=== PATIENT | female | born 1935 | race Caucasian/White ===

== ENCOUNTER → 2017-06-26 | Outpatient (CLI) | payer MEDICARE, MEDICAID ==
[~2017-06-26] MED LIST: ASPI-1471 PO; ASPI-719 PO; CARV12.578 PO; CARV25TA78 PO; DOCU-202 PO; FAMO-67 PO; HUMALOG SC; HYDR-2970 PO; INSU100C14 SQ; LANI SC; LISI-362 PO; METF-409 PO; METF-410 PO; METO25TA89 PO; OMEG-11 PO; QUI20 PO; SIMV-44 PO; SIMV10TA98 PO
== END ==
LOC: AMB 01:53
PROVIDERS: ATTEND Nurse Practitioner
DX: E10.65 Type 1 diabetes mellitus with hyperglycemia (principal); I10 Essential (primary) hypertension; R07.9 Chest pain, unspecified
CPT/HCPCS: A0425; A0427

== ENCOUNTER → 2017-06-28 | Outpatient (REF) | payer MEDICARE, MEDICAID | LOC: ZZLCC 08:05 | PROVIDERS: ATTEND Family Medicine | DX: E11.9 Type 2 diabetes mellitus without complications (principal); Z79.4 Long term (current) use of insulin; E78.5 Hyperlipidemia, unspecified; K21.9 Gastro-esophageal reflux disease without esophagitis; K59.00 Constipation, unspecified | CPT/HCPCS: 82009; 82040; 82247; 82310; 82374; 82435; 82565; 82947; 83036; 84075; 84132; 84155; 84295; 84450; 84460; 84520; 85027 ==

== ENCOUNTER → 2017-09-22 | Outpatient (REF) | payer MEDICARE, MEDICAID | LOC: ZZLCC 13:58 | PROVIDERS: ATTEND Family Medicine | DX: E11.9 Type 2 diabetes mellitus without complications (principal); Z79.899 Other long term (current) drug therapy | CPT/HCPCS: 82310; 82374; 82435; 82565; 82947; 84132; 84295; 84520 ==

== ENCOUNTER → 2017-11-21 | Outpatient (REF) | payer MEDICARE, MEDICAID ==
[~2017-11-21] MED LIST changes: -METF-410 PO; +METF-411 PO
== END ==
LOC: ZZLCC 07:42
PROVIDERS: ATTEND Family Medicine
DX: E11.69 Type 2 diabetes mellitus with other specified complication (principal)
CPT/HCPCS: 82043

== ENCOUNTER → 2018-03-21 | Outpatient (REF) | payer MEDICARE, MEDICAID | LOC: ZZLCC 11:26 | PROVIDERS: ATTEND Family Medicine | DX: E11.69 Type 2 diabetes mellitus with other specified complication (principal); Z79.899 Other long term (current) drug therapy | CPT/HCPCS: 82310; 82374; 82435; 82565; 82947; 83036; 84132; 84295; 84520 ==

== ENCOUNTER → 2018-03-29 | Outpatient (REF) | payer MEDICARE, MEDICAID ==
[~2018-03-29] MED LIST changes: +CANA300T PO; +INSU100I8 SQ; -METF-411 PO; +METF-450 PO
== END ==
LOC: ZZLCC 15:38
PROVIDERS: ATTEND Family Medicine
DX: E11.69 Type 2 diabetes mellitus with other specified complication (principal)
CPT/HCPCS: 83036

== ENCOUNTER → 2018-03-30 | Outpatient (CLI) | payer MEDICARE, MEDICAID ==
[~2018-03-30] MED LIST changes: +INSU100I30 SUBQ; +INSU100V24 SUBQ
== END ==
LOC: AMB 07:45
PROVIDERS: ATTEND Nurse Practitioner
DX: R06.00 Dyspnea, unspecified (principal); R73.9 Hyperglycemia, unspecified; R11.10 Vomiting, unspecified; R41.0 Disorientation, unspecified; R23.0 Cyanosis; R47.81 Slurred speech
CPT/HCPCS: A0425; A0427

== ENCOUNTER → 2018-04-06 | Outpatient (REF) | payer MEDICARE, MEDICAID | LOC: ZZSENDIN 14:18 | PROVIDERS: ATTEND Physician Assistant | DX: R60.0 Localized edema (principal) | CPT/HCPCS: 83880 ==

== ENCOUNTER → 2018-04-13 | Outpatient (CLI) | payer MEDICAID, MEDICARE, OTHER | LOC: US 04:05 | PROVIDERS: ATTEND Family Medicine | DX: I50.23 Acute on chronic systolic (congestive) heart failure (principal) | CPT/HCPCS: 93306 ==

== ENCOUNTER 2018-06-06 17:44 | Observation (INO) | payer MEDICARE, MEDICAID ==
[~2018-06-06] VITALS: Ht 160 cm; Wt 61.7 kg
[~2018-06-06 17:44] MED LIST changes: -ACET500T68 PO; -ALBU2.5V36 INH; -ANTACID PO; -FURO-47 PO; -INSU100I10; -INSU100I30 SQ; -LOPE-147 PO; -NITR0.4T3 SL; -SIMV-49 PO; -[UNRECOGNIZED DRUG - CODE] PO
--- NOTE | 2018-06-06 17:49 | ER Report ---
History and Physical Time Seen By MD: 17:49 Hx. of Stated Complaint: HYPOGLYCEMIA, CONTINUED SLURRED SPEECH. HPI/ROS CHIEF COMPLAINT: Hypoglycemia HISTORY OF PRESENT ILLNESS: This is an 82-year-old female who presents to the emergency department via EMS for hypoglycemia. Patient is a resident of the [facility], she was noted to be unresponsive by the staff, they did check her blood sugar there noted it was 28. They did try to give her oral glucose. EMS was contacted, they did upon arrival give her 2 intensity 50, the patient did begin to rales, she is now alert but still confused with some slurred speech. Patient denies fevers or chills. No chest pain or shortness breath. No headaches, no blurred vision no numbness or tingling. REVIEW OF SYSTEMS: Constitutional: No fever, no chills. Eyes: No discharge. ENT: No sore throat. Cardiovascular: No chest pain, no palpitations. Respiratory: No cough, no shortness of breath. Gastrointestinal: No abdominal pain, no vomiting. Genitourinary: No hematuria. Musculoskeletal: No back pain. Skin: No rashes. Neurological: As above. Allergies: Coded Allergies: Sulfa (Sulfonamide Antibiotics) (Verified Allergy, Intermediate, hives, 06/06/18) Penicillins (Verified Allergy, Mild, RASH, 06/06/18) Home Meds Active Scripts Insulin Lispro 100 Un/Ml Vial (HUMALOG 100 U/ML VIAL) 100 Unit/1 Ml Vial, 2-10 UNIT SUBQ SS PRN for SLIDING SCALE INSULIN, #10 ML 2 units for gluc 150-200 4 units for gluc 201-250 6 units for gluc 251-300 8 units for gluc 301-350 10 units for gluc >350 Prov:CHASE WHELAN DO 04/02/18 Reported Medications Simvastatin (SIMVASTATIN) 20 Mg Tablet, 10 MG PO HS, TAB 06/06/18 Nitroglycerin (NITROGLYCERIN) 0.4 Mg Tab.subl, 0.4 MG SL Q5MIN 06/06/18 Insulin Glargine 100 Un/Ml Pen (LANTUS SOLOSTAR PEN) 100 Unit/1 Ml Insuln.pen, 22 UNIT SQ DAILY, PEN 06/06/18 Furosemide (FUROSEMIDE) 40 Mg Tablet, 1 TAB PO DAILY, TAB 06/06/18 Loperamide Hcl (ANTI-DIARRHEA) 2 Mg Tablet, 2 MG PO 06/06/18 [antacid suspension] No Conflict Check, 30 ML PO 06/06/18 Albuterol Sulfate 0.083% (ALBUTEROL SULFATE 0.083%) 2.5 Mg/3 Ml Vial.neb, 2.5 MG INH BID, INH 06/06/18 Acetaminophen (TYLENOL EXTRA STRENGTH) 500 Mg Tablet, 500 MG PO Q4H for PAIN, TAB 06/06/18 Carvedilol (CARVEDILOL) 25 Mg Tablet, 25 MG PO BID, #10 TAB 01/01/16 Famotidine (FAMOTIDINE) 20 Mg Tablet, 20 MG PO QDAY, TAB 01/01/16 Docusate Sodium (DOCUSATE SODIUM) 100 Mg Capsule, 100 MG PO BID, CAPSULE 02/08/15 Lisinopril (LISINOPRIL) 10 Mg Tablet, 20 MG PO QDAY 02/08/15 Aspirin (ASPIR 81) 81 Mg Tablet.dr, 81 MG PO QDAY, TAB 02/08/15 Discontinued Reported Medications Insulin Glargine,Hum.rec.anlog (Basaglar Kwikpen U-100) 100 Unit/Ml (3 Ml) Insuln.pen, 18 DAILY 06/06/18 Simvastatin (SIMVASTATIN) 10 Mg Tablet, 10 MG PO HS, TAB 02/08/15 Discontinued Scripts Insulin Glargine 100 Un/Ml Pen (LANTUS SOLOSTAR PEN) 100 Unit/1 Ml Insuln.pen, 20 UNIT SUBQ DAILY, #10 ML Prov:CHASE WHELAN DO 04/02/18 Past Medical/Surgical History The patient has a past medical and surgical history of hypertension, hypercholesterolemia, constipation, GERD, wears glasses, type II diabetes, uses insulin. Reviewed Nurses Notes: Yes Hx Smoking: No Smoking Status: Never Smoker Hx Substance Use Disorder: No Constitutional Vital Sign - Last 24 Hours 06/06/18 06/06/18 06/06/18 06/06/18 17:44 17:45 17:49 18:00 Pulse 93 45 45 47 Resp 22 B/P (MAP) 165/86 165/86 (112) 184/85 (118) ???/??? (1665) Pulse Ox 95 O2 Delivery Room Air 06/06/18 06/06/18 06/06/18 06/06/18 18:15 18:30 18:35 18:45 Pulse 45 47 50 Resp 13 15 9 B/P (MAP) 193/87 (122) 177/102 (127) 167/78 (107) Pulse Ox 98 98 96 06/06/18 06/06/18 06/06/18 06/06/18 18:50 19:00 19:05 19:15 Pulse 47 44 Resp 6 6 B/P (MAP) 150/62 (91) 166/75 (105) 06/06/18 06/06/18 06/06/18 06/06/18 19:20 19:30 19:35 19:40 Pulse 43 64 ??? Resp 11 26 B/P (MAP) 175/79 (111) 06/06/18 19:45 B/P (MAP) 127/95 (106) Physical Exam General Appearance: The patient is alert, has no immediate need for airway protection and no signs of toxicity. Eyes: Pupils equal and round no pallor or injection. Right pupil 3 mm, left pupil 2 mm, both equal and reactive to light. EOMs intact, no nystagmus. ENT, Mouth: Mucous membranes are moist. Respiratory: There are no retractions, lungs are clear to auscultation. Cardiovascular: Regular rate and rhythm, no murmurs, clicks or rubs. Gastrointestinal: Abdomen is soft and non tender, no masses, bowel sounds normal. Neurological: Alert and oriented 3. Moving all extremities. Following all commands. No focal neuro deficits. CS 14. No pronator drift, is able to extend both arms for 10 seconds each, is able to keep both legs off the gurney for 5 seconds each. No deviation of the tongue. Skin: Warm and dry, no rashes. Musculoskeletal: Neck is supple non tender. Extremities are nontender, nonswollen and have full range of motion. DIFFERENTIAL DIAGNOSIS: After history and physical exam differential diagnosis was considered for altered mental status including but not limited to hypoglycemia, infectious process, electrolyte abnormality, head injury and intoxicants. Medical Decision Making Data Points Result Diagram: 06/06/18182506/06/181825 Laboratory Hematology Test 06/06/18 18:26 06/06/18 18:31 Red Blood Count 4.24 M/uL (4.17-5.56) Mean Corpuscular Volume 93.7 fL (80.0-96.0) Mean Corpuscular Hemoglobin 31.5 pg (26.0-33.0) Mean Corpuscular Hemoglobin Concent 33.6 g/dL (32.0-36.0) Red Cell Distribution Width 14.4 % (11.5-14.5) Mean Platelet Volume 9.0 fL (7.2-11.1) Neutrophils (%) (Auto) 59.3 % (39.4-72.5) Lymphocytes (%) (Auto) 27.1 % (17.6-49.6) Monocytes (%) (Auto) 7.3 % (4.1-12.4) Eosinophils (%) (Auto) 4.2 % (0.4-6.7) Basophils (%) (Auto) 2.1 % (0.3-1.4) Nucleated RBC Relative Count (auto) 0.0 /100WBC Neutrophils # (Auto) 3.6 K/uL (2.0-7.4) Lymphocytes # (Auto) 1.6 K/uL (1.3-3.6) Monocytes # (Auto) 0.4 K/uL (0.3-1.0) Eosinophils # (Auto) 0.3 K/uL (0.0-0.5) Basophils # (Auto) 0.1 K/uL (0.0-0.1) Nucleated RBC Absolute Count (auto) 0.00 K/uL Sodium Level 136 mmol/L (137-145) Potassium Level 3.6 mmol/L (3.5-5.0) Chloride Level 95 mmol/L (98-107) Carbon Dioxide Level 34 mmol/L (22-31) Blood Urea Nitrogen 20 mg/dl (7-18) Creatinine 0.90 mg/dl (0.52-1.04) Glomerular Filtration Rate Calc 59.8 Random Glucose 127 mg/dl (75-110) Calcium Level 9.3 mg/dl (8.4-10.2) Magnesium Level 2.2 mg/dl (1.7-2.2) Total Bilirubin 0.3 mg/dl (0.2-1.3) Aspartate Amino Transf (AST/SGOT) 31 U/L (0-35) Alanine Aminotransferase (ALT/SGPT) 32 U/L (0-56) Alkaline Phosphatase 82 U/L (0-126) Troponin I < 0.012 ng/ml Total Protein 7.2 g/dl (6.3-8.2) Albumin 3.8 g/dl (3.5-5.0) Urine Color Straw Urine Clarity Clear Urine pH 7.0 pH (4.8-9.5) Urine Specific [place] 1.005 Urine Protein Negative mg/dL (NEGATIVE) Urine Glucose (UA) 50 mg/dL (NEGATIVE) Urine Ketones Negative mg/dL (NEGATIVE) Urine Blood Negative (NEGATIVE) Urine Nitrite Negative (NEGATIVE) Urine Bilirubin Negative (NEGATIVE) Urine Urobilinogen Negative mg/dL (0.2-1.9) Urine Leukocyte Esterase Trace (NEGATIVE) Urine RBC 1 /HPF (0-2/HPF) Urine WBC 3 /HPF (0-5/HPF) Urine Squamous Epithelial Cells None /LPF (NONE-FEW) Urine Bacteria Negative /HPF (NONE-FEW) Urine Mucus None /HPF (NONE-FEW) Urine Opiates Screen Negative Urine Barbiturates Screen Negative Ur Tricyclic Antidepressants Screen Negative Urine Phencyclidine Screen Negative Urine Amphetamines Screen Negative Urine Benzodiazepines Screen Negative Urine Cocaine Screen Negative Urine Cannabinoids Screen Negative Chemistry Test 06/06/18 18:26 06/06/18 18:31 White Blood Count 6.0 k/uL (4.5-11.0) Red Blood Count 4.24 M/uL (4.17-5.56) Hemoglobin 13.3 g/dL (12.0-16.0) Hematocrit 39.7 % (34.0-47.0) Mean Corpuscular Volume 93.7 fL (80.0-96.0) Mean Corpuscular Hemoglobin 31.5 pg (26.0-33.0) Mean Corpuscular Hemoglobin Concent 33.6 g/dL (32.0-36.0) Red Cell Distribution Width 14.4 % (11.5-14.5) Platelet Count 278 K/uL (150-450) Mean Platelet Volume 9.0 fL (7.2-11.1) Neutrophils (%) (Auto) 59.3 % (39.4-72.5) Lymphocytes (%) (Auto) 27.1 % (17.6-49.6) Monocytes (%) (Auto) 7.3 % (4.1-12.4) Eosinophils (%) (Auto) 4.2 % (0.4-6.7) Basophils (%) (Auto) 2.1 % (0.3-1.4) Nucleated RBC Relative Count (auto) 0.0 /100WBC Neutrophils # (Auto) 3.6 K/uL (2.0-7.4) Lymphocytes # (Auto) 1.6 K/uL (1.3-3.6) Monocytes # (Auto) 0.4 K/uL (0.3-1.0) Eosinophils # (Auto) 0.3 K/uL (0.0-0.5) Basophils # (Auto) 0.1 K/uL (0.0-0.1) Nucleated RBC Absolute Count (auto) 0.00 K/uL Glomerular Filtration Rate Calc 59.8 Calcium Level 9.3 mg/dl (8.4-10.2) Magnesium Level 2.2 mg/dl (1.7-2.2) Total Bilirubin 0.3 mg/dl (0.2-1.3) Aspartate Amino Transf (AST/SGOT) 31 U/L (0-35) Alanine Aminotransferase (ALT/SGPT) 32 U/L (0-56) Alkaline Phosphatase 82 U/L (0-126) Troponin I < 0.012 ng/ml Total Protein 7.2 g/dl (6.3-8.2) Albumin 3.8 g/dl (3.5-5.0) Urine Color Straw Urine Clarity Clear Urine pH 7.0 pH (4.8-9.5) Urine Specific [place] 1.005 Urine Protein Negative mg/dL (NEGATIVE) Urine Glucose (UA) 50 mg/dL (NEGATIVE) Urine Ketones Negative mg/dL (NEGATIVE) Urine Blood Negative (NEGATIVE) Urine Nitrite Negative (NEGATIVE) Urine Bilirubin Negative (NEGATIVE) Urine Urobilinogen Negative mg/dL (0.2-1.9) Urine Leukocyte Esterase Trace (NEGATIVE) Urine RBC 1 /HPF (0-2/HPF) Urine WBC 3 /HPF (0-5/HPF) Urine Squamous Epithelial Cells None /LPF (NONE-FEW) Urine Bacteria Negative /HPF (NONE-FEW) Urine Mucus None /HPF (NONE-FEW) Urine Opiates Screen Negative Urine Barbiturates Screen Negative Ur Tricyclic Antidepressants Screen Negative Urine Phencyclidine Screen Negative Urine Amphetamines Screen Negative Urine Benzodiazepines Screen Negative Urine Cocaine Screen Negative Urine Cannabinoids Screen Negative Toxicology Test 06/06/18 18:31 Urine Opiates Screen Negative Urine Barbiturates Screen Negative Ur Tricyclic Antidepressants Screen Negative Urine Phencyclidine Screen Negative Urine Amphetamines Screen Negative Urine Benzodiazepines Screen Negative Urine Cocaine Screen Negative Urine Cannabinoids Screen Negative Urinalysis Test 06/06/18 18:31 Urine Color Straw Urine Clarity Clear Urine pH 7.0 pH (4.8-9.5) Urine Specific Rice 1.005 Urine Protein Negative mg/dL (NEGATIVE) Urine Glucose (UA) 50 mg/dL (NEGATIVE) Urine Ketones Negative mg/dL (NEGATIVE) Urine Blood Negative (NEGATIVE) Urine Nitrite Negative (NEGATIVE) Urine Bilirubin Negative (NEGATIVE) Urine Urobilinogen Negative mg/dL (0.2-1.9) Urine Leukocyte Esterase Trace (NEGATIVE) Urine RBC 1 /HPF (0-2/HPF) Urine WBC 3 /HPF (0-5/HPF) Urine Squamous Epithelial Cells None /LPF (NONE-FEW) Urine Bacteria Negative /HPF (NONE-FEW) Urine Mucus None /HPF (NONE-FEW) EKG/Imaging EKG Interpretation 12 lead EKG: Time of EKG 181. Rhythm: Marked sinus bradycardia, ventricular rate 41 bpm. [place]: normal QRS: normal ST segments: No ST depression or elevation identified. Poor R-wave progression in V3, V4 V5 and V6, Q waves present. This is significantly different from the 03/31/2018 EKG specifically V3 through V6. Imaging CT Head without contrast Indication: Confusion, slurred speech and hypoglycemia. Comparison: 02/08/2015. Technique: Axial CT images were obtained through the brain from the skull base to the vertex without administration of IV contrast. Reformatted coronal and sagittal images were also obtained. One of the following dose optimization techniques was utilized in the performance of this exam: automated exposure control; adjustment of the mA and/or kV according to the patient's size; or use of an iterative reconstruction technique. Specific details can be referenced in the facility's radiology CT exam operational policy. Findings: No evidence of mass, mass effect, or midline shift. No acute intracranial hemorrhage or acute territorial infarction. No extra-axial fluid collection or hydrocephalus. Age-related cerebral atrophy. Periventricular white matter ischemic changes consistent small vessel disease. Brown/white matter differentiation appears normal. Mild bilateral internal caroti d artery calcifications. Bony structures show no fractures or lesions. The visualized paranasal sinuses and mastoid air cells are clear. IMPRESSION: 1. Continued senescent changes without acute abnormality. Report Dictated By: Constantino Nesbitt at 06/06/2018 6:23 PM Report E-Signed By: Constantino Nesbitt at 06/06/2018 6:26 PM WSN:[id number] CHEST SINGLE AP Indication: Confusion, slurred speech and hypoglycemia.. Comparison: 03/30/2018. Findings: Cardiomediastinal silhouette and pulmonary vessels within normal limits. There is no focal infiltrate or lobar consolidation. No pneumothorax or pleural effusion. No nodule. Upper abdomen is unremarkable. No acute bony abnormality. IMPRESSION: 1. No acute cardiopulmonary process. Report Dictated By: Constantino Nesbitt at 06/06/2018 6:21 PM Report E-Signed By: Constantino Nesbitt at 06/06/2018 6:22 PM WSN:[id number] ED Course/Re-evaluation Clinical Indication for ER IV: Hydration, IV Access ED Course The patient was admitted to room. A history and physical were obtained. Differential diagnoses were considered. An IV was started. A CBC, CMP, troponin were obtained. CBC unremarkable, chemistry showing sodium 136, potassium 3.6, BUN 20 creatinine 0.90, negative troponin, unremarkable catheter UA. Repeat bedside glucose 145, 2nd repeat bedside glucose 105. Patient was given some juice and cheese as a snack. During the patient's intake, was noted that her heart rate was in the upper 30s and lower 40s. Patient was still alert and oriented, not complaining of chest pain, no nausea or vomiting. I did also no EKG changes in V3 through V6. Poor R-wave progression with Q waves throughout. I did speak with Dr. Angeles, of [facility], we did review the case as noted below, he did recommend an admission to the hospital or transfer. I did speak with Dr. Whelan the hospitalist on-call, he has accepted the patient in the hospitalist services. The patient will be admitted to the medical floor. At this time the patient's heart rate is 55, blood pressure 186/75. Patient states she is feeling a little better since her arrival. Patient was in agreement with this plan of care. 06/06/2018 7:55:20 pm I did speak with Dr. Angeles, of [facility], I did fax over the EKGs, he did note that there were Q waves in the V leads, significant way different from the previous EKG. He did recommend an admission to the hospital to monitor her bradycardia overnight, hold the Coreg, replete her potassium up to a level of 4, also give 2 g of magnesium. 06/06/2018 7:56:21 pm I did speak with Dr. Whelan, the hospitalist on-call, he 6 over the patient and the hospitalist services, she'll be admitted to the medical floor for bradycardia and hypoglycemia. Decision to Disposition Date: Jun 06, 2018 Decision to Disposition Time: 19:56 Depart Departure Latest Vital Signs Vital Signs Date Time Temp Pulse Resp B/P (MAP) Pulse Ox O2 Delivery O2 Flow Rate FiO2 06/06/18 19:45 127/95 (106) 06/06/18 19:40 ??? 06/06/18 19:35 26 06/06/18 18:35 96 06/06/18 17:44 Room Air Core Temperature (Celsius): 37 Impression: Primary Impression: Hypoglycemia associated with diabetes Additional Impression: Bradycardia Condition: Improved Disposition: Admitted from ER Referrals: CHASE LINARES MD (PCP) Problem Qualifiers QUANG VELÁZQUEZ CULINARY WORKER-BC Jun 06, 2018 17:49
[2018-06-06] MEDS ORDERED: EMS NS 0.9%(*) 1000 ML BAG 1,000 ML IV ONE (18:05)
[2018-06-06] MEDS ORDERED: ONDANSETRON 4 MG/2 ML VIAL IVP ONE (18:10)
--- NOTE | 2018-06-06 18:26 | RADIOLOGY IMAGING REPORT ---
[place] [facility] [place] Teena Yen : 1935 MR: [id number] V: [id number] EXAM DATE: ORDERING PHYSICIAN: QUANG VELÁZQUEZ TECHNOLOGIST: Location: [facility] [place] Patient: Teena Yen : 1935 Visit/Account:[id number] Date of Sevice: 06/06/2018 CHEST SINGLE AP Indication: Confusion, slurred speech and hypoglycemia.. Comparison: 03/30/2018. Findings: Cardiomediastinal silhouette and pulmonary vessels within normal limits. There is no focal infiltrate or lobar consolidation. No pneumothorax or pleural effusion. No nodule. Upper abdomen is unremarkable. No acute bony abnormality. IMPRESSION: 1. No acute cardiopulmonary process. Report Dictated By: Constantino Nesbitt at 06/06/2018 6:21 PM Report E-Signed By: Constantino Nesbitt at 06/06/2018 6:22 PM WSN:[id number]
--- NOTE | 2018-06-06 18:30 | RADIOLOGY IMAGING REPORT ---
FACILITY: [facility] PATIENT NAME: Teena Yen : 1935 MR: [id number] V: [id number] EXAM DATE: ORDERING PHYSICIAN: QUANG VELÁZQUEZ TECHNOLOGIST: Location: [facility] [place] Patient: Teena Yen : 1935 Visit/Account:[id number] Date of Sevice: 06/06/2018 CT Head without contrast Indication: Confusion, slurred speech and hypoglycemia. Comparison: 02/08/2015. Technique: Axial CT images were obtained through the brain from the skull base to the vertex without administration of IV contrast. Reformatted coronal and sagittal images were also obtained. One of the following dose optimization techniques was utilized in the performance of this exam: autom ated exposure control; adjustment of the mA and/or kV according to the patient's size; or use of an i terative reconstruction technique. Specific details can be referenced in the facility's radiology CT exam operational policy. Findings: No evidence of mass, mass effect, or midline shift. No acute intracranial hemorrhage or acute territorial infarction. No extra-axial fluid collection or hydrocephalus. Age-related cerebral atrophy. Periventricular white matter ischemic changes consistent small vessel disease. Brown/white matter differentiation appears n ormal. Mild bilateral internal carotid artery calcifications. Bony structures show no fractures or lesions. The visualized paranasal sinuses and mastoid air cells are clear. IMPRESSION: 1. Continued senescent changes without acute abnormality. Report Dictated By: Constantino Nesbitt at 06/06/2018 6:23 PM Report E-Signed By: Constantino Nesbitt at 06/06/2018 6:26 PM WSN:[id number]
[2018-06-06 18:32] LABS: PLATELET COUNT, AUTOMATED 278 K/uL (150-450)
--- NOTE | 2018-06-06 18:54 | EKG ---
[place] [facility] [place] NAME: TANYA TANG : [id number] MR: [id number] V: [id number] EXAM DATE: ORDERING PHYSICIAN: QUANG VELÁZQUEZ TECHNOLOGIST: EZIO Test Reason : LOW BLOOD SUGAR Blood Pressure : / mmHG Vent. Rate : 041 BPM Atrial Rate : 041 BPM P-R Int : 180 ms QRS Dur : 088 ms QT Int : 576 ms P-R-T Axes : 074 032 047 degrees QTc Int : 475 ms Marked sinus bradycardia Anterolateral infarct , age undetermined Abnormal ECG When compared with ECG of 31-MAR-2018 23:00, Anterior infarct is now present Anterolateral infarct is now present T wave amplitude has increased in Lateral leads QT has lengthened Confirmed by CHASE WHELAN ([id number]) on 06/06/2018 8:28:54 PM Referred By: Confirmed By:CHASE WHELAN
[2018-06-06] MEDS ORDERED: MAGNESIUM SUL* 2 GM/50 ML IVPB 50 ML IVPB ONE (19:50)
[2018-06-06] MEDS ORDERED: LOPE-147 PO (20:16)
[2018-06-06] MEDS ORDERED: ANTACID PO (20:16)
[2018-06-06] MEDS ORDERED: ACET500T68 PO (20:16)
[2018-06-06] MEDS ORDERED: FURO-47 PO (20:16)
[2018-06-06] MEDS ORDERED: ALBU2.5V36 INH (20:16)
[2018-06-06] MEDS ORDERED: SIMV-49 PO (20:49)
[2018-06-06] MEDS ORDERED: NITR0.4T3 SL (20:49)
[2018-06-06] MEDS ORDERED: INSU100I10 (20:49)
[2018-06-06] MEDS ORDERED: INSU100I30 SQ (20:49)
[2018-06-06 21:04] VITALS: BP 169/76
[2018-06-06] MEDS ORDERED: INFLUENZA VIRUS VAC 0.5ML SYR IM ONLY ONE (21:15)
--- NOTE | 2018-06-06 21:26 | History & Physical ---
History of Present Illness Chief Complaint Altered mental status History of Present Illness This patient was brought to the emergency room for altered mental status. [facility], and was found to be more confused this e vening. EMS reported that her blood sugar was 30 in the field. She was treated with several doses of glucose and her sugars improved. The patient reports that she skipped her afternoon snack. She reports feeling normal on arrival to the floor. History Problems: (1) Type 2 diabetes mellitus Status: Chronic (2) HTN (hypertension) Status: Chronic Home Meds Active Scripts Insulin Lispro 100 Un/Ml Vial (HUMALOG 100 U/ML VIAL) 100 Unit/1 Ml Vial, 2-10 UNIT SUBQ SS PRN for SLIDING SCALE INSULIN, #10 ML 2 units for gluc 150-200 4 units for gluc 201-250 6 units for gluc 251-300 8 units for gluc 301-350 10 units for gluc >350 Prov:CHASE WHELAN DO 04/02/18 Reported Medications Simvastatin (SIMVASTATIN) 20 Mg Tablet, 10 MG PO HS, TAB 06/06/18 Nitroglycerin (NITROGLYCERIN) 0.4 Mg Tab.subl, 0.4 MG SL Q5MIN 06/06/18 Insulin Glargine 100 Un/Ml Pen (LANTUS SOLOSTAR PEN) 100 Unit/1 Ml Insuln.pen, 22 UNIT SQ DAILY, PEN 06/06/18 Furosemide (FUROSEMIDE) 40 Mg Tablet, 1 TAB PO DAILY, TAB 06/06/18 Loperamide Hcl (ANTI-DIARRHEA) 2 Mg Tablet, 2 MG PO 06/06/18 [antacid suspension] No Conflict Check, 30 ML PO 06/06/18 Albuterol Sulfate 0.083% (ALBUTEROL SULFATE 0.083%) 2.5 Mg/3 Ml Vial.neb, 2.5 MG INH BID, INH 06/06/18 Acetaminophen (TYLENOL EXTRA STRENGTH) 500 Mg Tablet, 500 MG PO Q4H for PAIN, TAB 06/06/18 Carvedilol (CARVEDILOL) 25 Mg Tablet, 25 MG PO BID, #10 TAB 01/01/16 Famotidine (FAMOTIDINE) 20 Mg Tablet, 20 MG PO QDAY, TAB 01/01/16 Docusate Sodium (DOCUSATE SODIUM) 100 Mg Capsule, 100 MG PO BID, CAPSULE 02/08/15 Lisinopril (LISINOPRIL) 10 Mg Tablet, 20 MG PO QDAY 02/08/15 Aspirin (ASPIR 81) 81 Mg Tablet.dr, 81 MG PO QDAY, TAB 02/08/15 Discontinued Reported Medications Insulin Glargine,Hum.rec.anlog (Basaglar Kwikpen U-100) 100 Unit/Ml (3 Ml) Insuln.pen, 18 DAILY 06/06/18 Simvastatin (SIMVASTATIN) 10 Mg Tablet, 10 MG PO HS, TAB 02/08/15 Discontinued Scripts Insulin Glargine 100 Un/Ml Pen (LANTUS SOLOSTAR PEN) 100 Unit/1 Ml Insuln.pen, 20 UNIT SUBQ DAILY, #10 ML Prov:TIPCHASE DO 04/02/18 Allergies: Coded Allergies: Sulfa (Sulfonamide Antibiotics) (Verified Allergy, Intermediate, hives, 06/06/18) Penicillins (Verified Allergy, Mild, RASH, 06/06/18) Hx Smoking: No Smoking Status: Never Smoker Hx Substance Use Disorder: No Review of Systems All Systems Reviewed/Normal: Yes, Except as Noted Neurological: Confusion Exam Vital Signs Vital Signs Date Time Temp Pulse Resp B/P (MAP) Pulse Ox O2 Delivery O2 Flow Rate FiO2 06/06/18 21:04 66 16 169/76 (107) 94 Room Air Neuro: No Gross deficits Eyes: PERRLA Cardiovascular: Regular Rate and Rhythm Respiratory: Clear to Auscultation GI: Abd Soft and Non-Tender Extremities: No Edema Integumentary: No Cyanosis Medical Decision Making Data Points Result Diagram: 06/06/18182506/06/181825 Item Value Date Time Troponin I < 0.012 ng/ml 06/06/181825 Magnesium Level 2.2 mg/dl 06/06/181825 EKG / Imaging EKG Interpretation EKG reviewed. Assessment and Plan Problems: (1) Hypoglycemia associated with diabetes Status: Acute Assessment & Plan: She was noted to have a blood sugar in the 30's prior to arrival. She was treated with several doses of glucose in the field. Her sugars have remained stable since arriving in the emergency room. (2) Bradycardia Status: Acute Assessment & Plan: She reportedly had a pulse in the low 40's in the emergency room. Her carvedilol has been held and she will be placed on telemetry overnight. (3) Prolonged QT interval Assessment & Plan: She did have a prolonged QT interval on her initial EKG. She was treated with magnesium in the emergency room. We will monitor her on telemetry overnight and repeat an EKG in the morning. (4) Type 2 diabetes mellitus Status: Chronic Assessment & Plan: She is on chronic treatment with Lantus and sliding scale level #2. We will restart her on her usual dose of Lantus in the morning and cover her sugars as needed. (5) HTN (hypertension) Status: Chronic Assessment & Plan: She is on chronic treatment with carvedilol and losartan. The carvedilol has been discontinued as above. Copies to: CHASE LINARES MD ; Venous Thromboembolism Antithrombotics Is Pt On Any Antithrombotics?: No Exam Sepsis Risk: No Definite Risk CHASE WHELAN DO Jun 06, 2018 21:26
[2018-06-06] MEDS ORDERED: SIMVASTATIN 20 MG TAB PO SCH (21:45)
[2018-06-06] MEDS: INSULIN HUM LISPRO 100 UN/ML 3 ML VIAL SUBQ PRN (22:01)
[2018-06-06 23:07] VITALS: BP 166/57
[2018-06-07 03:29] VITALS: BP 129/48
[2018-06-07] MEDS ORDERED: ALBUTEROL 2.5 MG/3 ML NEB NEB SCH (06:00)
--- NOTE | 2018-06-07 06:34 | EKG ---
FACILITY: [facility] [place] PATIENT NAME: TANYA TANG : [id number] MR: [id number] V: [id number] EXAM DATE: ORDERING PHYSICIAN: CHASE WHELAN TECHNOLOGIST: JOSE LUIS Test Reason : RULE OUT Blood Pressure : / mmHG Vent. Rate : 073 BPM Atrial Rate : 073 BPM P-R Int : 156 ms QRS Dur : 084 ms QT Int : 392 ms P-R-T Axes : 077 060 079 degrees QTc Int : 431 ms Sinus rhythm Decreased R wave progression through precordial leads Nonspecific ST findings are similar to previous EKGs QT interval has normalized Abnormal ECG Confirmed by SANDRA KIMBALL ([id number]) on 06/07/2018 11:16:09 AM Referred By: Confirmed By:SANDRA KIMBALL
[2018-06-07 07:39] VITALS: BP 149/54
[2018-06-07] MEDS: INSULIN HUM LISPRO 100 UN/ML 3 ML VIAL SUBQ PRN (08:12)
[2018-06-07] MEDS ORDERED: INSU100I30 SQ (08:17)
--- NOTE | 2018-06-07 08:24 | Hospitalist Depart ---
Discharge Summary Reason for Hosp/Final Diag: (1) Hypoglycemia associated with diabetes Status: Acute Hospital Course & Plan: Most likely due to decreased oral intake with same indulin regimen. She was noted to have a blood sugar in the 30's prior to arrival. She was treated with several doses of glucose in the field. Her sugars have remained stable to modestly elevated since arriving to [facility]. She was eating/drinking normally. She will return to [facility] with same medication regimen, but orders to decrease her Lantus dose by 50% (from 22 units to 11 units) if she has decreased oral intake. (2) Bradycardia Status: Acute Hospital Course & Plan: She reportedly had a pulse in the low 40's in the emergency room. Her carvedilol has been held and she was placed on telemetry overnight. Her HR remained in normal range. Will decrease her carvedilol regimen by 50% as well. (3) Prolonged QT interval Hospital Course & Plan: She did have a prolonged QT interval on her initial EKG. She was treated with magnesium in the emergency room. She had no dysrhythmias. Her repeat an EKG showed normalization of QT interval. (4) Type 2 diabetes mellitus Status: Chronic Hospital Course & Plan: She is on chronic treatment with Lantus and sliding scale insulin. We will restart her on her usual dose of Lantus with instructions to decrease dose by 50% if oral intake is decreased. (5) HTN (hypertension) Status: Chronic Hospital Course & Plan: She is on chronic treatment with carvedilol and losartan. The carvedilol has been modified as above. Departure Weight (Pounds): 136 Result Diagram: 06/06/18182506/07/18 0515 Item Value Date Time Troponin I < 0.012 ng/ml 06/06/182206 Whole Blood Glucose 162 mg/DL H 06/06/182056 Whole Blood Glucose 105 mg/DL 06/06/182000 Magnesium Level 2.2 mg/dl 06/06/181825 Albumin 3.8 g/dl 06/06/181825 Total Protein 7.2 g/dl 06/06/181825 Troponin I < 0.012 ng/ml 06/06/181825 Alkaline Phosphatase 82 U/L 06/06/181825 Alanine Aminotransferase (ALT/SGPT) 32 U/L 11/21/18 1826 Aspartate Amino Transf (AST/SGOT) 31 U/L 06/06/18 1826 Total Bilirubin 0.3 mg/dl 06/06/18 1826 Calcium Level 9.3 mg/dl 06/06/18 1826 Urine Color Straw 06/06/18 1831 Urine Clarity Clear 06/06/18 1831 Urine pH 7.0 pH 06/06/18 1831 Urine Specific [place] 1.005 06/06/18 1831 Urine Protein Negative mg/dL 06/06/18 1831 Urine Ketones Negative mg/dL 06/06/18 1831 Urine Glucose (UA) 50 mg/dL H 06/06/18 1831 Urine Blood Negative 06/06/18 1831 Urine Nitrite Negative 06/06/18 1831 Urine Bilirubin Negative 06/06/18 1831 Urine Urobilinogen Negative mg/dL 06/06/18 1831 Urine Leukocyte Esterase Trace H 06/06/18 1831 Urine RBC 1 /HPF 06/06/18 1831 Urine WBC 3 /HPF 06/06/18 1831 Urine Bacteria Negative /HPF 06/06/18 1831 Urine Squamous Epithelial Cells None /LPF 06/06/18 1831 Urine Mucus None /HPF 06/06/18 1831 Urine Cannabinoids Screen Negative 06/06/18 1831 Urine Cocaine Screen Negative 06/06/18 1831 Urine Benzodiazepines Screen Negative 06/06/18 1831 Urine Amphetamines Screen Negative 06/06/18 1831 Urine Phencyclidine Screen Negative 06/06/18 1831 Ur Tricyclic Antidepressants Screen Negative 06/06/18 1831 Urine Barbiturates Screen Negative 06/06/18 1831 Urine Opiates Screen Negative 06/06/18 1831 Imaging PATIENT NAME: Teena Yen : 1935 MR: [id number] V: [id number] EXAM DATE: ORDERING PHYSICIAN: QUANG VELÁZQUEZ TECHNOLOGIST: Location: [facility] Patient: Teena Yen : 1935 Visit/Account:[id number] Date of Sevice: 06/06/2018 CT Head without contrast Indication: Confusion, slurred speech and hypoglycemia. Comparison: 02/08/2015. Technique: Axial CT images were obtained through the brain from the skull base to the vertex without administration of IV contrast. Reformatted coronal and sagittal images were also obtained. One of the following dose optimization techniques was utilized in the p erformance of this exam: automated exposure control; adjustment of the mA and/or kV according to the patient's size; or use of an iterative reconstruction technique. Specific details can be referenced in the facility's radiology CT exam operational policy. Findings: No evidence of mass, mass effect, or midline shift. No acute intracranial hemorrhage or acute territorial infarction. No extra-axial fluid collection or hydrocephalus. Age-related cerebral atrophy. Periventricular white matter ischemic changes consistent small vessel disease. Brown/white matter differentiation appears normal. Mild bilateral internal carotid artery calcifications. Bony structures show no fractures or lesions. The visualized paranasal sinuses and mastoid air cells are clear. IMPRESSION: 1. Continued senescent changes without acute abnormality. Report Dictated By: Constantino Nesbitt at 06/06/2018 6:23 PM Report E-Signed By: Constantino Nesbitt at 06/06/2018 6:26 PM WSN:[id number] PATIENT NAME: Teena Yen : 1935 MR: [id number] V: [id number] EXAM DATE: ORDERING PHYSICIAN: QUANG VELÁZQUEZ TECHNOLOGIST: Location: [facility] Patient: Teena Yen : 1935 Visit/Account:[id number] Date of Sevice: 06/06/2018 CHEST SINGLE AP Indication: Confusion, slurred speech and hypoglycemia.. Comparison: 03/30/2018. Findings: Cardiomediastinal silhouette and pulmonary vessels within normal limits. There is no focal infiltrate or lobar consolidation. No pneumothorax or pleural effusion. No nodule. Upper abdomen is unremarkable. No acute bony abnormality. IMPRESSION: 1. No acute cardiopulmonary process. Report Dictated By: Constantino Nesbitt at 06/06/2018 6:21 PM Report E-Signed By: Constantino Nesbitt at 06/06/2018 6:22 PM WSN:[id number] EKG PATIENT NAME: TEENA YEN : [id number] MR: [id number] V: [id number] EXAM DATE: ORDERING PHYSICIAN: QUANG VELÁZQUEZ TECHNOLOGIST: EZIO Test Reason : LOW BLOOD SUGAR Blood Pressure : / mmHG Vent. Rate : 041 BPM Atrial Rate : 041 BPM P-R Int : 180 ms QRS Dur : 088 ms QT Int : 576 ms P-R-T Axes : 074 032 047 degrees QTc Int : 475 ms Marked sinus bradycardia Anterolateral infarct , age undetermined Abnormal ECG When compared with ECG of 31-MAR-2018 23:00, Anterior infarct is now present Anterolateral infarct is now present T wave amplitude has increased in Lateral leads QT has lengthened Confirmed by CHASE WHELAN ([id number]) on 06/06/2018 8:28:54 PM Referred By: Confirmed By:CHASE WHELAN Condition: Improved Discharge: [facility] ([facility]) Follow-Up Labs: Finger Sticks (glucoses AC and HS and at nurse's discretion) Time Spent: > 30 min Discharge Instructions Home Meds Active Scripts Carvedilol (CARVEDILOL) 25 Mg Tablet, 12.5 MG PO BID, #30 TAB 6 Refills one-half tab twice daily Prov:SANDRA KIMBALL MD 06/07/18 Insulin Glargine 100 Un/Ml Pen (LANTUS SOLOSTAR PEN) 100 Unit/1 Ml Insuln.pen, 22 UNIT SQ DAILY for 30 Days, #1 PEN 6 Refills Reduce dose by 1/2 (to 11 units) if patient is not eating normally. Prov:SANDRA KIMBALL MD 06/07/18 Insulin Lispro 100 Un/Ml Vial (HUMALOG 100 U/ML VIAL) 100 Unit/1 Ml Vial, 2-10 UNIT SUBQ SS PRN for SLIDING SCALE INSULIN, #10 ML 2 units for gluc 150-200 4 units for gluc 201-250 6 units for gluc 251-300 8 units for gluc 301-350 10 units for gluc >350 Prov:CHASE WHELAN DO 04/02/18 Reported Medications Simvastatin (SIMVASTATIN) 20 Mg Tablet, 10 MG PO HS, TAB 06/06/18 Nitroglycerin (NITROGLYCERIN) 0.4 Mg Tab.subl, 0.4 MG SL Q5MIN 06/06/18 Furosemide (FUROSEMIDE) 40 Mg Tablet, 1 TAB PO DAILY, TAB 06/06/18 Loperamide Hcl (ANTI-DIARRHEA) 2 Mg Tablet, 2 MG PO 06/06/18 [antacid suspension] No Conflict Check, 30 ML PO 06/06/18 Albuterol Sulfate 0.083% (ALBUTEROL SULFATE 0.083%) 2.5 Mg/3 Ml Vial.neb, 2.5 MG INH BID, INH 06/06/18 Acetaminophen (TYLENOL EXTRA STRENGTH) 500 Mg Tablet, 500 MG PO Q4H for PAIN, TAB 06/06/18 Famotidine (FAMOTIDINE) 20 Mg Tablet, 20 MG PO QDAY, TAB 01/01/16 Docusate Sodium (DOCUSATE SODIUM) 100 Mg Capsule, 100 MG PO BID, CAPSULE 02/08/15 Lisinopril (LISINOPRIL) 10 Mg Tablet, 20 MG PO QDAY 02/08/15 Aspirin (ASPIR 81) 81 Mg Tablet.dr, 81 MG PO QDAY, TAB 02/08/15 Discontinued Reported Medications Insulin Glargine,Hum.rec.anlog (Basaglar Kwikpen U-100) 100 Unit/Ml (3 Ml) Insuln.pen, 18 DAILY 06/06/18 Simvastatin (SIMVASTATIN) 10 Mg Tablet, 10 MG PO HS, TAB 02/08/15 Discontinued Scripts Insulin Glargine 100 Un/Ml Pen (LANTUS SOLOSTAR PEN) 100 Unit/1 Ml Insuln.pen, 20 UNIT SUBQ DAILY, #10 ML Prov:CHASE WHELAN DO 04/02/18 Diet: Diabetic Activity: As Tolerated Special Instructions: Follow up with physician in next 1-2 weeks or sooner if any problems. Copies to: [facility] ; Venous Thromboembolism Antithrombotics Is Pt On Any Antithrombotics?: No SANDRA KIMBALL MD Jun 07, 2018 08:24
[2018-06-07] MEDS ORDERED: CARV25TA78 PO (08:26)
[2018-06-07] MEDS ORDERED: FAMOTIDINE 20 MG TAB PO SCH (09:00)
[2018-06-07] MEDS ORDERED: ASPIRIN 81 MG ENTERIC COATED PO SCH (09:00)
[2018-06-07] MEDS ORDERED: INSULIN GLARGINE 100 U/ML 3 ML PEN SUBQ SCH (09:00)
[2018-06-07] MEDS ORDERED: LISINOPRIL 20 MG TAB PO SCH (09:00)
[2018-06-07] MEDS ORDERED: FUROSEMIDE 40 MG TAB PO SCH (09:00)
== END 2018-06-07 08:17 | disposition home or self-care (01) ==
LOC: ER 17:50 → INTOOBSV 19:58 → MED 19:58
PROVIDERS: ADMIT Family Medicine; ATTEND Family Medicine
DX: E11.649 Type 2 diabetes mellitus with hypoglycemia without coma (principal); I45.81 Long QT syndrome; I10 Essential (primary) hypertension; E78.00 Pure hypercholesterolemia, unspecified; K21.9 Gastro-esophageal reflux disease without esophagitis; Z79.4 Long term (current) use of insulin; Z88.0 Allergy status to penicillin; Z88.2 Allergy status to sulfonamides
CPT/HCPCS: 36415; 36416; 70450; 71045; 80305; 81001; 82948; 83735; 84484; 85025; 93005; 94640; 96361; 96365; 96375; 99284; A4353; A9270; G0378; J1815; J2405; J3475; J7613; 82040; 82247; 82310; 82374; 82435; 82565; 82947; 84075; 84132; 84155; 84295; 84450; 84460; 84520; 96372

== ENCOUNTER → 2018-06-06 | Outpatient (CLI) | payer MEDICARE, MEDICAID ==
[~2018-06-06] MED LIST changes: +ACET500T68 PO; +ALBU2.5V36 INH; +ANTACID PO; +FURO-47 PO; +INSU100I10; +INSU100I30 SQ; +LOPE-147 PO; +NITR0.4T3 SL; +SIMV-49 PO; +[UNRECOGNIZED DRUG - CODE] PO
== END ==
LOC: AMB 17:18
PROVIDERS: ATTEND Nurse Practitioner
DX: E11.641 Type 2 diabetes mellitus with hypoglycemia with coma (principal); J98.8 Other specified respiratory disorders
CPT/HCPCS: A0425; A0427

== ENCOUNTER 2018-06-11 16:25 | Emergency (ER) | payer MEDICARE, MEDICAID ==
[~2018-06-11 16:25] MED LIST changes: -[UNRECOGNIZED DRUG - CODE] PO
--- NOTE | 2018-06-11 16:37 | ER Report ---
History and Physical Time Seen By MD: 16:33 Hx. of Stated Complaint: Patient with reading of "LOW" on blood sugar monitor at the [facility]. Arrives talking. HPI/ROS CHIEF COMPLAINT: Hyperglycemia HISTORY OF PRESENT ILLNESS: This is an 82-year-old female who presents to the emergency department via EMS for a hypoglycemic event. The patient is a resident of the [facility], she was noted to be somewhat unresponsive, they did check her blood sugar and it was so low that the glucometer would not read. EMS was contacted, they arrived, they checked her blood sugar too, the glucometer read "low" which is less than 25mg/dl. they gave a dose of glucagon, started an IV and gave an amp of D50, when they rechecked her blood sugar was 209. Patient is arousable, she rise alert and oriented to self, she does have some underlying dementia. Patient was seen and evaluated 5 days ago, admitted to the hospital for hypoglycemia as well as EKG changes and Q waves noted throughout. Patient denies fevers, chills, chest pain, shortness of breath. REVIEW OF SYSTEMS: Constitutional: No fever, no chills. Eyes: No discharge. ENT: No sore throat. Cardiovascular: No chest pain, no palpitations. Respiratory: No cough, no shortness of breath. Gastrointestinal: No abdominal pain, no vomiting. Genitourinary: No hematuria. Musculoskeletal: No back pain. Skin: No rashes. Neurological: As above. Allergies: Coded Allergies: Sulfa (Sulfonamide Antibiotics) (Verified Allergy, Intermediate, hives, 06/06/18) Penicillins (Verified Allergy, Mild, RASH, 06/06/18) Home Meds Active Scripts Carvedilol (CARVEDILOL) 25 Mg Tablet, 12.5 MG PO BID, #30 TAB 6 Refills one-half tab twice daily Prov:SANDRA KIMBALL MD 06/07/18 Insulin Glargine 100 Un/Ml Pen (LANTUS SOLOSTAR PEN) 100 Unit/1 Ml Insuln.pen, 22 UNIT SQ DAILY for 30 Days, #1 PEN 6 Refills Reduce dose by 1/2 (to 11 units) if patient is not eating normally. Prov:SANDRA KIMBALL MD 06/07/18 Insulin Lispro 100 Un/Ml Vial (HUMALOG 100 U/ML VIAL) 100 Unit/1 Ml Vial, 2-10 UNIT SUBQ SS PRN for SLIDING SCALE INSULIN, #10 ML 2 units for gluc 150-200 4 units for gluc 201-250 6 units for gluc 251-300 8 units for gluc 301-350 10 units for gluc >350 Prov:CHASE WHELAN DO 04/02/18 Reported Medications Insulin Aspart (NOVOLOG) 100 Unit/1 Ml Cartridge, 100 UNIT SQ 06/11/18 Mag Hydrox/Al Hydrox/Simeth (ANTACID SUSPENSION) 355 Ml Oral.susp, 30 ML PO PRN 06/11/18 Simvastatin (SIMVASTATIN) 20 Mg Tablet, 10 MG PO HS, TAB 06/06/18 Furosemide (FUROSEMIDE) 40 Mg Tablet, 1 TAB PO DAILY, TAB 06/06/18 Loperamide Hcl (ANTI-DIARRHEA) 2 Mg Tablet, 2 MG PO PRN 06/06/18 Albuterol Sulfate 0.083% (ALBUTEROL SULFATE 0.083%) 2.5 Mg/3 Ml Vial.neb, 2.5 MG INH BID, INH 06/06/18 Acetaminophen (TYLENOL EXTRA STRENGTH) 500 Mg Tablet, 500 MG PO Q4H for PAIN, TAB 06/06/18 Famotidine (FAMOTIDINE) 20 Mg Tablet, 20 MG PO QDAY, TAB 01/01/16 Docusate Sodium (DOCUSATE SODIUM) 100 Mg Capsule, 100 MG PO BID, CAPSULE 02/08/15 Lisinopril (LISINOPRIL) 10 Mg Tablet, 20 MG PO QDAY 02/08/15 Aspirin (ASPIR 81) 81 Mg Tablet.dr, 81 MG PO QDAY, TAB 02/08/15 Discontinued Reported Medications Nitroglycerin (NITROGLYCERIN) 0.4 Mg Tab.subl, 0.4 MG SL Q5MIN 06/06/18 [antacid suspension] No Conflict Check, 30 ML PO 06/06/18 Insulin Glargine,Hum.rec.anlog (Basaglar Kwikpen U-100) 100 Unit/Ml (3 Ml) Insuln.pen, 18 DAILY 06/06/18 Simvastatin (SIMVASTATIN) 10 Mg Tablet, 10 MG PO HS, TAB 02/08/15 Discontinued Scripts Insulin Glargine 100 Un/Ml Pen (LANTUS SOLOSTAR PEN) 100 Unit/1 Ml Insuln.pen, 20 UNIT SUBQ DAILY, #10 ML Prov:CHASE WHELAN DO 04/02/18 Past Medical/Surgical History The patient has a past medical and surgical history of hypertension, hypercholesterolemia, constipation, GERD, wears glasses, type II diabetes, uses insulin. Reviewed Nurses Notes: Yes Hx Smoking: No Smoking Status: Never Smoker Hx Substance Use Disorder: No Hx Alcohol Use: Yes Constitutional Vital Sign - Last 24 Hours 06/11/18 06/11/18 06/11/18 06/11/18 16:31 16:32 16:45 17:00 Temp 96.5 Pulse 52 56 55 Resp 16 B/P (MAP) 184/82 184/82 (116) 181/144 (156) Pulse Ox 93 91 93 06/11/18 06/11/18 06/11/18 17:15 17:30 17:45 Pulse 53 50 52 B/P (MAP) 177/80 (112) Pulse Ox 90 95 100 Physical Exam General Appearance: The patient is alert, has no immediate need for airway protection and no signs of toxicity. Eyes: Pupils equal and round no pallor or injection. ENT, Mouth: Mucous membranes are moist. Respiratory: There are no retractions, lungs are clear to auscultation. Cardiovascular: Regular rate and rhythm, no murmurs, clicks or rubs. Gastrointestinal: Abdomen is soft and non tender, no masses, bowel sounds deandra l. Neurological: Alert and oriented times self, this is patient's baseline. Moving all extremities. following all commands. No focal neuro deficits. Skin: Warm and dry, no rashes. Musculoskeletal: Neck is supple non tender. Extremities are nontender, nonswollen and have full range of motion. DIFFERENTIAL DIAGNOSIS: After history and physical exam differential diagnosis was considered for altered mental status including but not limited to hypoglycemia, infectious process, electrolyte abnormality, head injury and intoxicants. Medical Decision Making Data Points Result Diagram: 06/11/18 1656 06/11/18 1656 Laboratory Hematology Test 06/11/18 16:56 06/11/18 17:58 Red Blood Count 4.29 M/uL (4.17-5.56) Mean Corpuscular Volume 93.4 fL (80.0-96.0) Mean Corpuscular Hemoglobin 31.4 pg (26.0-33.0) Mean Corpuscular Hemoglobin Concent 33.6 g/dL (32.0-36.0) Red Cell Distribution Width 14.6 % (11.5-14.5) Mean Platelet Volume 8.7 fL (7.2-11.1) Neutrophils (%) (Auto) 55.2 % (39.4-72.5) Lymphocytes (%) (Auto) 27.3 % (17.6-49.6) Monocytes (%) (Auto) 10.6 % (4.1-12.4) Eosinophils (%) (Auto) 5.9 % (0.4-6.7) Basophils (%) (Auto) 1.0 % (0.3-1.4) Nucleated RBC Relative Count (auto) 0.0 /100WBC Neutrophils # (Auto) 2.9 K/uL (2.0-7.4) Lymphocytes # (Auto) 1.4 K/uL (1.3-3.6) Monocytes # (Auto) 0.6 K/uL (0.3-1.0) Eosinophils # (Auto) 0.3 K/uL (0.0-0.5) Basophils # (Auto) 0.1 K/uL (0.0-0.1) Nucleated RBC Absolute Count (auto) 0.00 K/uL Sodium Level 134 mmol/L (137-145) Potassium Level 3.7 mmol/L (3.5-5.0) Chloride Level 95 mmol/L (98-107) Carbon Dioxide Level 33 mmol/L (22-31) Blood Urea Nitrogen 19 mg/dl (7-18) Creatinine 1.00 mg/dl (0.52-1.04) Glomerular Filtration Rate Calc 53.0 Random Glucose 178 mg/dl (75-110) Calcium Level 9.1 mg/dl (8.4-10.2) Total Bilirubin 0.3 mg/dl (0.2-1.3) Aspartate Amino Transf (AST/SGOT) 25 U/L (0-35) Alanine Aminotransferase (ALT/SGPT) 28 U/L (0-56) Alkaline Phosphatase 75 U/L (0-126) Troponin I < 0.012 ng/ml Total Protein 6.9 g/dl (6.3-8.2) Albumin 3.5 g/dl (3.5-5.0) Whole Blood Glucose 157 mg/DL (75-110) Chemistry Test 06/11/18 16:56 06/11/18 17:58 White Blood Count 5.3 k/uL (4.5-11.0) Red Blood Count 4.29 M/uL (4.17-5.56) Hemoglobin 13.5 g/dL (12.0-16.0) Hematocrit 40.1 % (34.0-47.0) Mean Corpuscular Volume 93.4 fL (80.0-96.0) Mean Corpuscular Hemoglobin 31.4 pg (26.0-33.0) Mean Corpuscular Hemoglobin Concent 33.6 g/dL (32.0-36.0) Red Cell Distribution Width 14.6 % (11.5-14.5) Platelet Count 298 K/uL (150-450) Mean Platelet Volume 8.7 fL (7.2-11.1) Neutrophils (%) (Auto) 55.2 % (39.4-72.5) Lymphocytes (%) (Auto) 27.3 % (17.6-49.6) Monocytes (%) (Auto) 10.6 % (4.1-12.4) Eosinophils (%) (Auto) 5.9 % (0.4-6.7) Basophils (%) (Auto) 1.0 % (0.3-1.4) Nucleated RBC Relative Count (auto) 0.0 /100WBC Neutrophils # (Auto) 2.9 K/uL (2.0-7.4) Lymphocytes # (Auto) 1.4 K/uL (1.3-3.6) Monocytes # (Auto) 0.6 K/uL (0.3-1.0) Eosinophils # (Auto) 0.3 K/uL (0.0-0.5) Basophils # (Auto) 0.1 K/uL (0.0-0.1) Nucleated RBC Absolute Count (auto) 0.00 K/uL Glomerular Filtration Rate Calc 53.0 Calcium Level 9.1 mg/dl (8.4-10.2) Total Bilirubin 0.3 mg/dl (0.2-1.3) Aspartate Amino Transf (AST/SGOT) 25 U/L (0-35) Alanine Aminotransferase (ALT/SGPT) 28 U/L (0-56) Alkaline Phosphatase 75 U/L (0-126) Troponin I < 0.012 ng/ml Total Protein 6.9 g/dl (6.3-8.2) Albumin 3.5 g/dl (3.5-5.0) Whole Blood Glucose 157 mg/DL (75-110) EKG/Imaging EKG Interpretation 12 lead EKG: Time of EKG 1657. Rhythm: Sinus bradycardia, ventricular rate 53 ppm. [place]: normal QRS: normal ST segments: Q waves noted in V2, V3, V3, poor R-wave progression. There are changes noted on the EKG from the 06/06/2018 EKG. Improvement in V3-V6 on the current EKG. Imaging CHEST SINGLE AP Indication: Hypoglycemia. Altered mental status.. Comparison: 06/06/2018. Findings: Cardiomediastinal silhouette and pulmonary vessels within normal limits for the technique. There is no focal infiltrate or lobar consolidation. No pneumothorax or pleural effusion. No nodule. Upper abdomen is unremarkable. No acute bony abnormality. IMPRESSION: 1. No acute cardiopulmonary process. Report Dictated By: Constantino Nesbitt at 06/11/2018 5:21 PM Report E-Signed By: Constantino Nesbitt at 06/11/2018 5:22 PM WSN:[id number] ED Course/Re-evaluation Clinical Indication for ER IV: IV Access ED Course The patient was admitted to a room via EMS. A history of this were obtained. Differential diagnoses were considered. An IV was started. A CBC, CMP and troponin were obtained.CBC unremarkable, chemistry showing sodium 134, BUN 19, creatinine 1, negative troponin. The EKG showing no acute changes, in fact the c hanges were improved from last week's EKG. Initial bedside glucose was 178, repeat an hour later was 157. Patient remained stable, alert and at baseline mentation, pain-free while in the emergency department. A single he chest x-ray was negative for any acute cardiopulmonary process. I did review the results with the patient's, I did tell her that I think what's happening is she is getting the wrong dose of insulin causing these hypoglycemic events. An order was sent home with patient, instructions on discontinuing the aggressive sliding scale coverage and continue with the less aggressive sliding scale, also cut the Lantus in half from 22 units a day to 11 units a day, instructed to follow-up with her primary care provider by the end of this week for reevaluation and discussion on blood sugars. No other questions or concerns at this time, patient was discharged home. Decision to Disposition Date: Jun 11, 2018 Decision to Disposition Time: 18:01 Depart Departure Latest Vital Signs Vital Signs Date Time Temp Pulse Resp B/P (MAP) Pulse Ox O2 Delivery O2 Flow Rate FiO2 06/11/18 17:45 52 100 06/11/18 17:30 177/80 (112) 06/11/18 16:31 96.5 16 Core Temperature (Celsius): 37 Impression: Primary Impression: Hypoglycemia associated with diabetes Condition: Improved Disposition: HOME OR SELF-CARE Referrals: CHASE LINARES MD (PCP) 5 Days Patient Instructions: Hypoglycemia in a Person with Diabetes (ED) Additional Instructions: Be sure to schedule a follow up appointment with Dr. Linares within 5 days for reevaluation and discussion about recurrent Hypoglycemia. Note the orders sent home with the patient, please use the insulin sliding scale as noted below. Also, the Lantus order has been cut from 22 units a day to 11 units a day. Drink plenty of water. Get plenty of rest. Return to the ED for any other concerns or worsening symptoms. Insulin Lispro 100 Un/Ml Vial (HUMALOG 100 U/ML VIAL) 100 Unit/1 Ml Vial, 2-10 UNIT SUBQ SS PRN for SLIDING SCALE INSULIN, #10 ML 2 units for gluc 150-200 4 units for gluc 201-250 6 units for gluc 251-300 8 units for gluc 301-350 10 units for gluc >350 QUANG VELÁZQUEZ [employer] Jun 11, 2018 16:37
[2018-06-11] MEDS ORDERED: [UNRECOGNIZED DRUG - CODE] PO (16:48)
[2018-06-11] MEDS ORDERED: INSU100C14 SQ (16:48)
[2018-06-11] MEDS ORDERED: EMS NS 0.9%(*) 1000 ML BAG 1,000 ML IV ONE (16:50)
[2018-06-11 17:02] LABS: PLATELET COUNT, AUTOMATED 298 K/uL (150-450)
--- NOTE | 2018-06-11 17:05 | EKG ---
FACILITY: [facility] [place] PATIENT NAME: TANYA TANG : [id number] MR: [id number] V: [id number] EXAM DATE: ORDERING PHYSICIAN: QUANG VELÁZQUEZ TECHNOLOGIST: EZIO Test Reason : HYPOGLYCEMIA Blood Pressure : / mmHG Vent. Rate : 053 BPM Atrial Rate : 053 BPM P-R Int : 182 ms QRS Dur : 088 ms QT Int : 506 ms P-R-T Axes : 063 011 041 degrees QTc Int : 474 ms Sinus bradycardia Inferior infarct , age undetermined Anterior infarct (cited on or before 11-JUN-2018) Abnormal ECG When compared with ECG of 07-JUN-2018 06:07, Inferior infarct is now present Questionable change in initial forces of Lateral leads Confirmed by PAZ TELLO ([id number]) on 06/11/2018 8:22:54 PM Referred By: QUANG Confirmed By:PAZ TELLO
--- NOTE | 2018-06-11 17:27 | RADIOLOGY IMAGING REPORT ---
FACILITY: [facility] [place] PATIENT NAME: Teena Yen : 1935 MR: [id number] V: [id number] EXAM DATE: ORDERING PHYSICIAN: QUANG VELÁZQUEZ TECHNOLOGIST: Location: [facility] Patient: Teena Yen : 1935 Visit/Account:[id number] Date of Sevice: 06/11/2018 CHEST SINGLE AP Indication: Hypoglycemia. Altered mental status.. Comparison: 06/06/2018. Findings: Cardiomediastinal silhouette and pulmonary vessels within normal limits for the technique. There is no focal infiltrate or lobar consolidation. No pneumothorax or pleural effusion. No nodule. Upper abdomen is unremarkable. No acute bony abnormality. IMPRESSION: 1. No acute cardiopulmonary process. Report Dictated By: Constantino Nesbitt at 06/11/2018 5:21 PM Report E-Signed By: Constantino Nesbitt at 06/11/2018 5:22 PM WSN:[id number]
[2018-06-11 17:30] VITALS: BP 177/80
== END 2018-06-11 18:00 | disposition home or self-care (01) ==
LOC: ER 16:34
DX: E11.649 Type 2 diabetes mellitus with hypoglycemia without coma (principal); R00.1 Bradycardia, unspecified; R94.31 Abnormal electrocardiogram [ECG] [EKG]
CPT/HCPCS: 36415; 36416; 71045; 82040; 82247; 82310; 82374; 82435; 82565; 82947; 82948; 84075; 84132; 84155; 84295; 84450; 84460; 84484; 84520; 85025; 93005; 96360; 99284

== ENCOUNTER → 2018-06-11 | Outpatient (CLI) | payer MEDICARE, MEDICAID ==
[~2018-06-11] MED LIST changes: +ACET500T68 PO; +ALBU2.5V36 INH; +ANTACID PO; +FURO-47 PO; +INSU100I10; +INSU100I30 SQ; +LOPE-147 PO; +NITR0.4T3 SL; +SIMV-49 PO; +[UNRECOGNIZED DRUG - CODE] PO
== END ==
LOC: AMB 15:56
PROVIDERS: ATTEND Nurse Practitioner
DX: E11.649 Type 2 diabetes mellitus with hypoglycemia without coma (principal)
CPT/HCPCS: A0425; A0427

== ENCOUNTER → 2018-06-28 | Outpatient (REF) | payer MEDICARE, MEDICAID ==
[~2018-06-28] MED LIST changes: +[UNRECOGNIZED DRUG - CODE] PO
== END ==
LOC: ZZLCC 20:09
PROVIDERS: ATTEND Family Medicine
DX: E11.69 Type 2 diabetes mellitus with other specified complication (principal)
CPT/HCPCS: 83036

== ENCOUNTER → 2018-07-11 | Outpatient (CLI) | payer MEDICARE, MEDICAID | LOC: AMB 19:25 | PROVIDERS: ATTEND Nurse Practitioner | DX: E86.0 Dehydration (principal) | CPT/HCPCS: A0425; A0428 ==

== ENCOUNTER → 2018-07-11 | Outpatient (CLI) | payer MEDICARE, MEDICAID | LOC: AMB 17:07 | PROVIDERS: ATTEND Nurse Practitioner | DX: E11.649 Type 2 diabetes mellitus with hypoglycemia without coma (principal); R41.82 Altered mental status, unspecified | CPT/HCPCS: A0425; A0429 ==

== ENCOUNTER 2018-07-27 03:23 | Emergency (ER) | payer MEDICARE, MEDICAID ==
[2018-07-27] MEDS ORDERED: DEXTROSE 50% 50 ML SYR IVP ONE (03:30)
--- NOTE | 2018-07-27 03:32 | ER Report ---
History and Physical Time Seen By MD: 03:27 HPI/ROS CHIEF COMPLAINT: Unresponsive, altered mental status HISTORY OF PRESENT ILLNESS: 83-year-old female, insulin-dependent diabetic brought from the alf where she was found unresponsive, diaphoretic and drooling. There is to glucose by alf staff was 21. They were unable to give any glucose to her. She does not have IV access. They called EMS to bring her in. EMS attempted one peripheral IV without success and subsequently gave gone 1 mg IM. On arrival, patient is beginning to respond opening her eyes. Repeat fingerstick by EMS is 66. [facility] staff report. Rhys Lariosvaldo daily at bedtime, glucose was 394. She was last seen one hour prior before she was found unresponsive. [facility] staff report no prodromal illness. See alf paperwork for additional details. REVIEW OF SYSTEMS: Respiratory: No cough, no dyspnea. Cardiovascular: No chest pain, no palpitations. Gastrointestinal: No vomiting, no abdominal pain. Musculoskeletal: No back pain. Allergies: Coded Allergies: Sulfa (Sulfonamide Antibiotics) (Verified Allergy, Intermediate, hives, 07/27/18) Penicillins (Verified Allergy, Mild, RASH, 07/27/18) Home Meds Active Scripts Carvedilol (CARVEDILOL) 25 Mg Tablet, 12.5 MG PO BID, #30 TAB 6 Refills one-half tab twice daily Prov:SANDRA KIMBALL MD 06/07/18 Insulin Glargine 100 Un/Ml Pen (LANTUS SOLOSTAR PEN) 100 Unit/1 Ml Insuln.pen, 22 UNIT SQ DAILY for 30 Days, #1 PEN 6 Refills Reduce dose by 1/2 (to 11 units) if patient is not eating normally. Prov:SANDRA KIMBALL MD 06/07/18 Insulin Lispro 100 Un/Ml Vial (HUMALOG 100 U/ML VIAL) 100 Unit/1 Ml Vial, 2-10 UNIT SUBQ SS PRN for SLIDING SCALE INSULIN, #10 ML 2 units for gluc 150-200 4 units for gluc 201-250 6 units for gluc 251-300 8 units for gluc 301-350 10 units for gluc >350 Prov:CHASE WHELAN DO 04/02/18 Reported Medications Insulin Aspart (NOVOLOG) 100 Unit/1 Ml Cartridge, 100 UNIT SQ 06/11/18 Mag Hydrox/Al Hydrox/Simeth (ANTACID SUSPENSION) 355 Ml Oral.susp, 30 ML PO PRN 06/11/18 Simvastatin (SIMVASTATIN) 20 Mg Tablet, 10 MG PO HS, TAB 06/06/18 Furosemide (FUROSEMIDE) 40 Mg Tablet, 1 TAB PO DAILY, TAB 06/06/18 Loperamide Hcl (ANTI-DIARRHEA) 2 Mg Tablet, 2 MG PO PRN 06/06/18 Albuterol Sulfate 0.083% (ALBUTEROL SULFATE 0.083%) 2.5 Mg/3 Ml Vial.neb, 2.5 MG INH BID, INH 06/06/18 Acetaminophen (TYLENOL EXTRA STRENGTH) 500 Mg Tablet, 500 MG PO Q4H for PAIN, TAB 06/06/18 Famotidine (FAMOTIDINE) 20 Mg Tablet, 20 MG PO QDAY, TAB 01/01/16 Docusate Sodium (DOCUSATE SODIUM) 100 Mg Capsule, 100 MG PO BID, CAPSULE 02/08/15 Lisinopril (LISINOPRIL) 10 Mg Tablet, 20 MG PO QDAY 02/08/15 Aspirin (ASPIR 81) 81 Mg Tablet.dr, 81 MG PO QDAY, TAB 02/08/15 Past Medical/Surgical History The patient has a past medical and surgical history of hypertension, hypercholesterolemia, constipation, GERD, wears glasses, type II diabetes, uses insulin. Reviewed Nurses Notes: Yes Old Medical Records Reviewed: Yes Hx Smoking: No Smoking Status: Never Smoker Hx Substance Use Disorder: No Hx Alcohol Use: Yes Constitutional Vital Sign - Last 24 Hours 07/27/18 07/27/18 07/27/18 07/27/18 03:24 03:29 03:53 03:57 Temp 93.0 Pulse 55 71 Resp 21 16 10 B/P (MAP) 167/115 167/115 (132) Pulse Ox 89 88 O2 Delivery Nasal Cannula 07/27/18 07/27/18 07/27/18 07/27/18 03:58 04:07 04:12 04:17 Pulse 53 58 52 Resp 17 10 10 B/P (MAP) 153/87 (109) Pulse Ox 98 99 100 O2 Flow Rate 3.0 07/27/18 04:22 Pulse 45 Resp 11 Pulse Ox 100 Physical Exam Vital signs stable, temperature 90.3 rectal temp General Appearance: The patient is alert, has no immediate need for airway protection and no current signs of toxicity. Alert but not oriented. Patient is wondering where she is. Her glucose was 90. HEENT: Pupils equal and round no injection. TMs normal, oropharynx with moist, no erythema Respiratory: Chest is non tender, lungs are clear to auscultation. No wheezing or rails Cardiac: regular rate and rhythm Gastrointestinal: Abdomen is soft and non tender, no masses, bowel sounds normal. Musculoskeletal: Neck: Neck is supple and non tender. Extremities have full range of motion and are non tender. Skin: No rashes or lesions. DIFFERENTIAL DIAGNOSIS: After history and physical exam differential diagnosis was considered for altered mental status including but not limited to hypoglycemia, infectious process, electrolyte abnormality, head injury and intoxicants., Hypothermia Medical Decision Making Data Points Result Diagram: 07/27/18 0330 07/27/18 033 Laboratory Hematology Test 07/27/18 03:30 07/27/18 04:05 07/27/18 04:06 Red Blood Count 4.86 M/uL (4.17-5.56) Mean Corpuscular Volume 93.1 fL (80.0-96.0) Mean Corpuscular Hemoglobin 31.1 pg (26.0-33.0) Mean Corpuscular Hemoglobin Concent 33.4 g/dL (32.0-36.0) Red Cell Distribution Width 13.6 % (11.5-14.5) Mean Platelet Volume 8.7 fL (7.2-11.1) Neutrophils (%) (Auto) % (39.4-72.5) Lymphocytes (%) (Auto) % (17.6-49.6) Monocytes (%) (Auto) % (4.1-12.4) Eosinophils (%) (Auto) % (0.4-6.7) Basophils (%) (Auto) % (0.3-1.4) Nucleated RBC Relative Count (auto) /100WBC Neutrophils # (Auto) K/uL (2.0-7.4) Lymphocytes # (Auto) K/uL (1.3-3.6) Monocytes # (Auto) K/uL (0.3-1.0) Eosinophils # (Auto) K/uL (0.0-0.5) Basophils # (Auto) K/uL (0.0-0.1) Nucleated RBC Absolute Count (auto) K/uL Neutrophils % (Manual) 35 % (39.4-72.5) Lymphocytes % (Manual) 39 % (17.6-49.6) Atypical Lymphocytes % 12 % Monocytes % (Manual) 9 % (4.1-12.4) Eosinophils % (Manual) 4 % (0.4-6.7) Basophils % (Manual) 1 % (0.3-1.4) Peripheral Blood Smear Yes Y/N Sodium Level 137 mmol/L (137-145) Potassium Level 3.6 mmol/L (3.5-5.0) Chloride Level 95 mmol/L (98-107) Carbon Dioxide Level 31 mmol/L (22-31) Blood Urea Nitrogen 28 mg/dl (7-18) Creatinine 1.20 mg/dl (0.52-1.04) Glomerular Filtration Rate Calc 42.8 Random Glucose 90 mg/dl (75-110) Calcium Level 9.7 mg/dl (8.4-10.2) Total Bilirubin 0.2 mg/dl (0.2-1.3) Aspartate Amino Transf (AST/SGOT) 29 U/L (0-35) Alanine Aminotransferase (ALT/SGPT) 17 U/L (0-56) Alkaline Phosphatase 123 U/L (0-126) Total Protein 8.2 g/dl (6.3-8.2) Albumin 4.3 g/dl (3.5-5.0) Whole Blood Glucose 198 mg/DL (75-110) Lactate 1.7 mmol/L (0.7-2.1) Chemistry Test 07/27/18 03:30 07/27/18 04:05 07/27/18 04:06 White Blood Count 6.1 k/uL (4.5-11.0) Red Blood Count 4.86 M/uL (4.17-5.56) Hemoglobin 15.1 g/dL (12.0-16.0) Hematocrit 45.3 % (34.0-47.0) Mean Corpuscular Volume 93.1 fL (80.0-96.0) Mean Corpuscular Hemoglobin 31.1 pg (26.0-33.0) Mean Corpuscular Hemoglobin Concent 33.4 g/dL (32.0-36.0) Red Cell Distribution Width 13.6 % (11.5-14.5) Platelet Count 318 K/uL (150-450) Mean Platelet Volume 8.7 fL (7.2-11.1) Neutrophils (%) (Auto) % (39.4-72.5) Lymphocytes (%) (Auto) % (17.6-49.6) Monocytes (%) (Auto) % (4.1-12.4) Eosinophils (%) (Auto) % (0.4-6.7) Basophils (%) (Auto) % (0.3-1.4) Nucleated RBC Relative Count (auto) /100WBC Neutrophils # (Auto) K/uL (2.0-7.4) Lymphocytes # (Auto) K/uL (1.3-3.6) Monocytes # (Auto) K/uL (0.3-1.0) Eosinophils # (Auto) K/uL (0.0-0.5) Basophils # (Auto) K/uL (0.0-0.1) Nucleated RBC Absolute Count (auto) K/uL Neutrophils % (Manual) 35 % (39.4-72.5) Lymphocytes % (Manual) 39 % (17.6-49.6) Atypical Lymphocytes % 12 % Monocytes % (Manual) 9 % (4.1-12.4) Eosinophils % (Manual) 4 % (0.4-6.7) Basophils % (Manual) 1 % (0.3-1.4) Peripheral Blood Smear Yes Y/N Glomerular Filtration Rate Calc 42.8 Calcium Level 9.7 mg/dl (8.4-10.2) Total Bilirubin 0.2 mg/dl (0.2-1.3) Aspartate Amino Transf (AST/SGOT) 29 U/L (0-35) Alanine Aminotransferase (ALT/SGPT) 17 U/L (0-56) Alkaline Phosphatase 123 U/L (0-126) Total Protein 8.2 g/dl (6.3-8.2) Albumin 4.3 g/dl (3.5-5.0) Whole Blood Glucose 198 mg/DL (75-110) Lactate 1.7 mmol/L (0.7-2.1) EKG/Imaging EKG Interpretation 12 lead EK 347 Rhythm: Sinus bradycardia, rate 54 bpm [place]: normal QRS: normal ST segments:, Comparison to previous EKG dated 07/11/18, no significant change Imaging X-ray: Single view chest x-ray was obtained. I viewed the images myself on the PACS system. My interpretation of the images is: No infiltrate, no effusion, normal mediastinum., Comparison to previous chest x-ray. No significant change. The radiologist interpretation had no clinically significant variation from this interpretation. ED Course/Re-evaluation Clinical Indication for ER IV: Hydration, IV Access ED Course Patient was minute to an examination room. H&P was done. The differential diagnoses was considered. On clinical examination. Patient has altered mental status, her glucose is 90, but she is still altered. A peripheral IV is established. Diagnostic bloods are sent off. She's given one half and of dextrose 50% 12.5 g IV. Her mental status improves. She has a rectal temperature of 93. She's placed under warm blankets and given 1 L of warm saline. Chest x-ray shows no infiltrate. Since patient was having gurgling respirations. There was a concern for aspiration. Her EKG is unchanged from previous. A lactate is unremarkable at 1.7. She'll return to the alf. There to contact the physician caring for the patient and adjust the insulin orders. They should feed the patient every 2 hours and especially a bedtime snack. Decision to Disposition Date: Jul 27, 2018 Decision to Disposition Time: 04:18 Depart Departure Latest Vital Signs Vital Signs Date Time Temp Pulse Resp B/P (MAP) Pulse Ox O2 Delivery O2 Flow Rate FiO2 07/27/18 04:22 45 11 100 07/27/18 04:07 153/87 (109) 07/27/18 03:58 3.0 07/27/18 03:24 93.0 Nasal Cannula Core Temperature (Celsius): 37 Impression: Primary Impression: Hypoglycemia associated with diabetes Additional Impressions: Hypothermia Altered mental status, unspecified Condition: Improved Disposition: HOME OR SELF-CARE Referrals: CHASE LINARES MD (PCP) Patient Instructions: Hypoglycemia in a Person with Diabetes (ED) Problem Qualifiers Additional Impressions: Hypothermia Encounter type: initial encounter Qualified Codes: T68.XXXA - Hypothermia, initial encounter Altered mental status, unspecified Altered mental status type: disorientation Qualified Codes: R41.0 - Disorientation, unspecified EDWIN ARMSTRONG DO Jul 27, 2018 03:32
[2018-07-27 03:44] LABS: PLATELET COUNT, AUTOMATED 318 K/uL (150-450)
--- NOTE | 2018-07-27 04:12 | RADIOLOGY IMAGING REPORT ---
[place] [facility] [place] Teena Yen : 1935 MR: [id number] V: [id number] EXAM DATE: ORDERING PHYSICIAN: EDWIN ARMSTRONG TECHNOLOGIST: Location: Patient: Teena Yen : 1935 Visit/Account:[id number] Date of Sevice: 07/27/2018 AP CHEST 07/27/2018 3:29 AM. INDICATION: Unresponsive. COMPARISON: 06/11/2018. FINDINGS: Lungs are well-expanded. There is no consolidation. No pleural effusion or pneumothorax. Heart size i s normal. IMPRESSION: No acute abnormality. Report Dictated By: Gera Melissa MD at 07/27/2018 4:06 AM Report E-Signed By: Gera Melissa MD at 07/27/2018 4:08 AM WSN:[id number]
--- NOTE | 2018-07-27 04:25 | EKG ---
FACILITY: [facility] PATIENT NAME: TANYA TANG : [id number] MR: [id number] V: [id number] EXAM DATE: ORDERING PHYSICIAN: EDWIN ARMSTRONG TECHNOLOGIST: RANDEE Test Reason : SYNCOPE Blood Pressure : / mmHG Vent. Rate : 054 BPM Atrial Rate : 054 BPM P-R Int : 190 ms QRS Dur : 108 ms QT Int : 512 ms P-R-T Axes : 067 049 064 degrees QTc Int : 485 ms Sinus bradycardia Possible previous anterior infarct Possible previous inferior infarct Nonspecific ST findings Abnormal ECG When compared with ECG of 11-JUL-2018 18:20, No significant change was found Confirmed by SANDRA KIMBALL ([id number]) on 07/27/2018 6:03:16 AM Referred By: Confirmed By:SANDRA KIMBALL
[2018-07-27 04:30] VITALS: BP 141/77
== END 2018-07-27 04:54 | disposition home or self-care (01) ==
LOC: ER 04:00
DX: E11.649 Type 2 diabetes mellitus with hypoglycemia without coma (principal); T68.XXXA Hypothermia, initial encounter; R41.0 Disorientation, unspecified; R41.82 Altered mental status, unspecified; R00.1 Bradycardia, unspecified
CPT/HCPCS: 36415; 36416; 71045; 82040; 82247; 82310; 82374; 82435; 82565; 82947; 82948; 83605; 84075; 84132; 84155; 84295; 84450; 84460; 84520; 85025; 93005; 96374; 99284

== ENCOUNTER → 2018-07-27 | Outpatient (CLI) | payer MEDICARE, MEDICAID | LOC: AMB 03:04 | PROVIDERS: ATTEND Nurse Practitioner | DX: R41.82 Altered mental status, unspecified (principal); E11.649 Type 2 diabetes mellitus with hypoglycemia without coma | CPT/HCPCS: A0425; A0427 ==

== ENCOUNTER → 2018-07-27 | Outpatient (CLI) | payer MEDICARE, MEDICAID | LOC: AMB 04:45 | PROVIDERS: ATTEND Nurse Practitioner | DX: Z76.89 Persons encountering health services in other specified circumstances (principal) | CPT/HCPCS: A0425; A0428 ==